=== PATIENT | male | born 1975 | race African-American/Black ===

== ENCOUNTER 2023-01-06 20:44 | Emergency (ER) | payer SELFPAY ==
[~2023-01-06] VITALS: Ht 185.4 cm; Wt 95.0 kg
[2023-01-06 20:51] VITALS: BP 240/148; PULSE 120; RESP 15; O2SAT 95
[2023-01-06] MEDS ORDERED: HYDROCODONE/ACETAMINOPHEN 5/325MG TABLET PO ONE (22:00)
[2023-01-06] MEDS ORDERED: TETANUS, DIPHTHERIA, PERTUSSIS VAC/PF 0.5ML (>10YR OLD) IM ONE (22:30)
[2023-01-06] MEDS ORDERED: LORAZEPAM 2MG/ML CPJ IM ONE (23:00)
[2023-01-06] MEDS ORDERED: CEPH500C2 MT (23:12)
[2023-01-06] MEDS ORDERED: TOPUD PO (23:16)
== END 2023-01-07 00:03 ==
LOC: ER 20:44
DX: S81.812A Laceration without foreign body, left lower leg, initial encounter (principal); I10 Essential (primary) hypertension; F15.10 Other stimulant abuse, uncomplicated; Z86.73 Personal history of transient ischemic attack (TIA), and cerebral infarction without residual deficits; X58.XXXA Exposure to other specified factors, initial encounter; Y93.89 Activity, other specified; Y92.89 Other specified places as the place of occurrence of the external cause; Y99.8 Other external cause status
CPT/HCPCS: 99283; J2060; Z7610 ×4